=== PATIENT | female | born 1965 | race Caucasian/White ===

== ENCOUNTER → 2017-06-03 | Outpatient (CLI) | payer OTHER | END | disposition home or self-care (01) | LOC: CFH 15:03 | PROVIDERS: ATTEND Genetic Counselor, MS | DX: Z12.31 Encounter for screening mammogram for malignant neoplasm of breast (principal) | CPT/HCPCS: 77063; G0202 ==

== ENCOUNTER → 2018-07-22 | Outpatient (CLI) | payer OTHER | END | disposition home or self-care (01) | LOC: CFH 08:15 | PROVIDERS: ATTEND Nurse Practitioner Family | DX: K58.1 Irritable bowel syndrome with constipation (principal); R10.31 Right lower quadrant pain; A04.9 Bacterial intestinal infection, unspecified | CPT/HCPCS: 76857 ==

== ENCOUNTER 2020-10-10 09:52 | Inpatient (IN) | payer OTHER ==
[~2020-10-10] VITALS: Ht 160 cm; Wt 80.2 kg
[2020-10-10] MEDS ORDERED: KETOROLAC 30 MG/1 ML ONE (10:50)
[2020-10-10] MEDS ORDERED: ONDANSETRON 2MG/ML, 2ML ONE (10:50)
[2020-10-10] MEDS ORDERED: ACETAMINOPHEN 500 MG TABLET ONE (10:50)
[2020-10-10] MEDS ORDERED: ACETAMINOPHEN 500 MG TABLET PO ONE (11:00)
[2020-10-10] MEDS ORDERED: SODIUM CHLORIDE FLUSH 10ML SYR IVF ONE (11:00)
[2020-10-10] MEDS ORDERED: SODIUM CHLORIDE 0.9% 1,000ML IVBOLUS ONE (11:00)
[2020-10-10] MEDS ORDERED: KETOROLAC 30 MG/1 ML IVPush ONE (11:00)
[2020-10-10] MEDS ORDERED: ONDANSETRON 2MG/ML, 2ML IVPush ONE (11:00)
[2020-10-10 11:10] LABS: MICROSCOPIC AUTO
[2020-10-10 11:28] LABS: BASOPHILS % (AUTO) 0 % (0-1); EOSINOPHILS % (AUTO) 0 % (1-7); LYMPHOCYTES % (AUTO) 6 % (22-44); MEAN CORPUSCULAR HGB CONC 32.8 g/dL (32.4-35.8); MEAN PLATELET VOLUME 8.3 fL (7.4-10.4); MONOCYTES % (AUTO) 12 % (2-9); NEUTROPHILS % (AUTO) 81 % (42-75); PLATELET COUNT 330 x10^3/uL (130-400); RED BLOOD COUNT 4.04 x10^6/uL (3.82-5.3); RED CELL DISTRIBUTION WIDTH 12.6 % (9.6-15.2)
[2020-10-10 11:38] LABS: ALBUMIN 3.3 g/dL (3.4-5.0); ANION GAP 9 mmol/L (5-15); CALCIUM 9.2 mg/dL (8.5-10.1); CHLORIDE 105 mmol/L (98-107)
[2020-10-10 11:41] LABS: ALANINE AMINOTRANSFERASE 63 U/L (12-78); ALKALINE PHOSPHATASE 231 U/L (45-117); BILIRUBIN,TOTAL 0.6 mg/dL (0.2-1.0); CREATININE 0.96 mg/dL (0.55-1.02); TOTAL PROTEIN 7.9 g/dL (6.4-8.2)
[2020-10-10 11:49] LABS: MD SCAN
[2020-10-10] MEDS ORDERED: POTASSIUM CHLORIDE 20 MEQ TAB.ER.PRT PO ONE (12:00)
[2020-10-10] MEDS ORDERED: CEFTRIAXONE PMX 1GM/50ML 50 ML IV ONE (12:00)
[2020-10-10] MEDS ORDERED: POTASSIUM CHLORIDE 20 MEQ TAB.ER.PRT ONE (12:01)
[2020-10-10] MEDS ORDERED: CEFTRIAXONE PMX 1GM/50ML 50 ML ONE (12:01)
[2020-10-10] MEDS ORDERED: LACTATED RINGERS 1,000 ML IVBOLUS ONE (14:00)
[2020-10-10] MEDS ORDERED: ACETAMINOPHEN 325 MG TABLET PO PRN (15:30)
[2020-10-10] MEDS ORDERED: ENOXAPARIN 40 MG/0.4 ML ONE (16:13)
[2020-10-10] MEDS: ENOXAPARIN 40 MG/0.4 ML SQ SCH (16:17)
--- NOTE | 2020-10-10 16:19 | NUR ---
BREAK RN: PT MEDICATED PER JAN. PT AMBULATED TO BATHROOM WITH STEADY GAIT
[2020-10-10] MEDS: POTASSIUM CHLORIDE 20 MEQ in LACTATED RINGERS 1,000 ML IV SCH (17:51)
--- NOTE | 2020-10-10 19:28 | NUR ---
PT PLACED ON HOSPITAL BED. FOOD PROVIDED.
[2020-10-10] MEDS ORDERED: LEVO88TA4 PO (21:32)
[2020-10-10] MEDS ORDERED: ZOLP12.56 PO (21:32)
[2020-10-10 21:38] VITALS: BP 114/72
[2020-10-11] MEDS: ZOLPIDEM 10MG TABLET PO PRN ×2 (01:36→20:48)
[2020-10-11 01:39] VITALS: BP 96/56
[2020-10-11] MEDS: POTASSIUM CHLORIDE 20 MEQ in LACTATED RINGERS 1,000 ML IV SCH ×2 (02:04→15:43)
[2020-10-11 06:09] LABS: BASOPHILS % (AUTO) 0 % (0-1); EOSINOPHILS % (AUTO) 0 % (1-7); LYMPHOCYTES % (AUTO) 10 % (22-44); MEAN CORPUSCULAR HEMOGLOBIN 30.8 pg (27.0-34.8); MEAN CORPUSCULAR HGB CONC 33.8 g/dL (32.4-35.8); MEAN PLATELET VOLUME 8.5 fL (7.4-10.4); MONOCYTES % (AUTO) 15 % (2-9); NEUTROPHILS % (AUTO) 74 % (42-75); PLATELET COUNT 271 x10^3/uL (130-400); RED BLOOD COUNT 3.22 x10^6/uL (3.82-5.3); RED CELL DISTRIBUTION WIDTH 12.3 % (9.6-15.2)
[2020-10-11 06:17] LABS: MD NO
[2020-10-11 06:23] LABS: CHLORIDE 106 mmol/L (98-107)
[2020-10-11] MEDS: IBUPROFEN 600 MG TABLET PO PRN (06:27)
[2020-10-11 06:28] LABS: ANION GAP 7 mmol/L (5-15); CALCIUM 8.1 mg/dL (8.5-10.1); CREATININE 0.65 mg/dL (0.55-1.02)
[2020-10-11] MEDS: CEFTRIAXONE PMX 2GM/50ML 50 ML IVPB SCH (11:22)
[2020-10-11 12:00] VITALS: BP 97/56
[2020-10-11] MEDS: POLYETHYLENE GLYCOL 17 GM PACKET NG PRN (12:23)
[2020-10-11] MEDS: LEVOTHYROXINE 88 MCG TABLET PO SCH (12:23)
[2020-10-11] MEDS: ENOXAPARIN 40 MG/0.4 ML SQ SCH (15:30)
[2020-10-11 19:38] VITALS: BP 119/68
[2020-10-11 20:48] VITALS: BP 114/64
[2020-10-12 00:33] VITALS: BP 104/59
[2020-10-12 06:18] LABS: BASOPHILS % (AUTO) 1 % (0-1); EOSINOPHILS % (AUTO) 1 % (1-7); LYMPHOCYTES % (AUTO) 15 % (22-44); MEAN CORPUSCULAR HEMOGLOBIN 30.8 pg (27.0-34.8); MEAN CORPUSCULAR HGB CONC 33.7 g/dL (32.4-35.8); MEAN PLATELET VOLUME 8.5 fL (7.4-10.4); MONOCYTES % (AUTO) 13 % (2-9); NEUTROPHILS % (AUTO) 71 % (42-75); PLATELET COUNT 335 x10^3/uL (130-400); RED CELL DISTRIBUTION WIDTH 12.4 % (9.6-15.2)
[2020-10-12 06:56] LABS: MD NO
[2020-10-12] MEDS: LEVOTHYROXINE 88 MCG TABLET PO SCH (07:57)
[2020-10-12] MEDS: POTASSIUM CHLORIDE 20 MEQ in LACTATED RINGERS 1,000 ML IV SCH (07:57)
[2020-10-12 08:05] VITALS: BP 118/69
[2020-10-12] MEDS ORDERED: SENNA/DOCUSATE TABLET PO PRN (10:30)
[2020-10-12] MEDS ORDERED: BISACODYL 10 MG SUPP PR PRN (10:30)
[2020-10-12 10:55] LABS: ANION GAP 6 mmol/L (5-15); CALCIUM 8.4 mg/dL (8.5-10.1); CHLORIDE 105 mmol/L (98-107); CREATININE 0.52 mg/dL (0.55-1.02)
[2020-10-12] MEDS: POLYETHYLENE GLYCOL 17 GM PACKET NG PRN (11:37)
[2020-10-12] MEDS: CEFTRIAXONE PMX 2GM/50ML 50 ML IVPB SCH (12:07)
[2020-10-12 12:27] VITALS: BP 119/69
[2020-10-12] MEDS: ENOXAPARIN 40 MG/0.4 ML SQ SCH (15:30)
[2020-10-12] MEDS: IBUPROFEN 600 MG TABLET PO PRN (15:35)
[2020-10-12] MEDS ORDERED: SENN-220 PO (15:44)
[2020-10-12] MEDS ORDERED: CIPR500T3 PO (15:44)
[2020-10-12] MEDS ORDERED: HYDR-3240 PO (15:44)
== END 2020-10-12 17:47 | disposition home or self-care (01) | DRG 872 ==
LOC: ED 13:06 → EDIP 15:29 → 3N 20:59
PROVIDERS: ADMIT Family Medicine; ATTEND Family Medicine
DX: A41.9 Sepsis, unspecified organism (principal); N10 Acute pyelonephritis; B96.20 Unspecified Escherichia coli [E. coli] as the cause of diseases classified elsewhere; E03.9 Hypothyroidism, unspecified; E87.6 Hypokalemia; G47.00 Insomnia, unspecified; R65.20 Severe sepsis without septic shock; D64.9 Anemia, unspecified; Z20.828 Contact with and (suspected) exposure to other viral communicable diseases; Z90.49 Acquired absence of other specified parts of digestive tract; Z90.710 Acquired absence of both cervix and uterus; Z98.84 Bariatric surgery status; Z88.5 Allergy status to narcotic agent; Z79.899 Other long term (current) drug therapy
CPT/HCPCS: 36415; 71045; 74176; 80048; 80053; 81001; 83605; 83735; 84145; 85025; 87040; 87086; 87635; 93005; 96361; 96374; 96375; 99285; G0378; J0696; J1650; J1885; J2405; J3480; J7030; J7120; U0003